=== PATIENT | female | born 1955 | race Caucasian/White ===

== ENCOUNTER → 2017-02-06 | Outpatient (CLI) | payer OTHER ==
[~2017-02-06] MED LIST: BISO1TAB6 PO; LORA10TA76 PO; LOSA100T28 PO; MINO100T10 PO; MONT10TA21 PO; TRAZ300T3 PO
--- NOTE | 2017-02-06 09:23 | Diagnostic Imaging Report ---
PROCEDURE: US abdomen complete. TECHNIQUE: Multiple real-time grayscale images were obtained over the abdomen in various projections. INDICATION: Right upper quadrant pain. FINDINGS: The pancreas is largely obscured by bowel gas. The liver demonstrates no focal mass. There is hepatopetal flow in the portal vein. The inferior aspect of the right hepatic lobe demonstrates a 1.3 cm simple appearing cyst. There is no gallstone or gallbladder wall thickening seen. The CBD is 3 mm in caliber. The spleen is 9.7 cm in length with no hydronephrosis or focal lesion. The right kidney is 9.3 and the left kidney is 9.4 cm in length. There is no hydronephrosis or focal lesion. No fluid collection is noted in the upper right abdomen. The abdominal aorta is patent and normal in caliber. The IVC is obscured by bowel gas. No ascites is seen. IMPRESSION: No significant abnormality. Dictated by: Dictated on workstation # [id number]
== END ==
LOC: RAD 07:38
PROVIDERS: ATTEND Family Medicine
DX: R10.11 Right upper quadrant pain (principal); R14.0 Abdominal distension (gaseous)
CPT/HCPCS: 76700

== ENCOUNTER → 2017-02-22 | Outpatient (CLI) | payer OTHER ==
--- NOTE | 2017-02-22 16:27 | Diagnostic Imaging Report ---
INDICATION: Generalized abdominal pain. FINDINGS: KUB shows normal stool gas pattern with no evidence of constipation. No distended small bowel loop. No organomegaly. No pathologic calcifications. No bony abnormalities. IMPRESSION: Normal KUB. Dictated by: Dictated on workstation # [id number]
== END ==
LOC: RAD 13:47
PROVIDERS: ATTEND Family Medicine
DX: R10.84 Generalized abdominal pain (principal)
CPT/HCPCS: 74000

== ENCOUNTER → 2017-11-07 | Outpatient (CLI) | payer OTHER ==
--- NOTE | 2017-11-07 14:17 | Diagnostic Imaging Report ---
INDICATION: Weakness and neck popping. TIME OF EXAM: 02:18 p.m. FINDINGS: There is slight reversal of the normal cervical lordotic curvature. There is multilevel degenerative disc disease with disc space narrowing and marginal spurring, particularly from the C3-C4 through the C6-C7 levels. The prevertebral tissues are normal. The odontoid is intact. No fractures are seen. IMPRESSION: Cervical spondylosis and reversal of normal curvature. No acute bony abnormality is detected. Dictated by: Dictated on workstation # [id number]
== END ==
LOC: RAD 13:47
PROVIDERS: ATTEND Family Medicine
DX: M47.812 Spondylosis without myelopathy or radiculopathy, cervical region (principal); M43.8X2 Other specified deforming dorsopathies, cervical region; R53.1 Weakness
CPT/HCPCS: 72040

== ENCOUNTER → 2018-03-25 | Outpatient (CLI) | payer OTHER ==
--- NOTE | 2018-03-25 16:21 | Diagnostic Imaging Report ---
INDICATION: Neck pain and left arm numbness and productive cough. PA and lateral chest obtained at 04:32 p.m. Heart and mediastinal silhouette are normal in appearance. The lungs are clear. There is no pneumothorax or pleural fluid. IMPRESSION: Negative chest. Dictated by: Dictated on workstation # [id number]
--- NOTE | 2018-03-25 16:28 | Diagnostic Imaging Report ---
INDICATION: Neck pain and left arm numbness. AP, odontoid, and lateral views of the cervical spine are obtained and compared with 11/07/17. FINDINGS: There is loss of lordosis which is unchanged compared to the prior study. The cervical vertebrae are normal in height. There is disc space narrowing at C3-C4, C4-C5 and C5-C6 and C6-C7. The facets appear in good alignment. IMPRESSION: Stable degenerative changes of the cervical spine which are unchanged from 11/07/17. Dictated by: Dictated on workstation # [id number]
== END ==
LOC: RAD 15:48
PROVIDERS: ATTEND Family Medicine
DX: M47.812 Spondylosis without myelopathy or radiculopathy, cervical region (principal); R05 Cough
CPT/HCPCS: 71046; 72040

== ENCOUNTER → 2018-04-07 | Outpatient (CLI) | payer OTHER ==
--- NOTE | 2018-04-07 16:01 | Diagnostic Imaging Report ---
INDICATION: History of smoking. COMPARISON: None. TECHNIQUE: Routine low-dose noncontrast CT of the chest was performed per departmental protocol for low dose CT screening of the chest. FINDINGS: Evaluation of the lung srivastava demonstrates mild air trapping consistent with background of COPD changes. There is a punctate subpleural micronodule within the lateral margins of the right upper lobe (image 51, series 5). No other suspicious pulmonary nodules or masses are identified. There is no focal consolidation, pleural effusion, nor pneumothorax. Cardiomediastinal structures are somewhat suboptimally evaluated given low-dose noncontrast nature of the exam, but heart size is within normal limits. There is small pericardial effusion. No pathologically enlarged or morphologically abnormal adenopathy is seen within the mediastinum, kaye, nor axilla. Note is made of mild calcified coronary atherosclerosis. Bony structures show age-related degenerative changes. Included portions of the upper abdomen are unremarkable. IMPRESSION: 1. Single punctate micronodule within the right upper lobe as described above. Continued followup with annual low dose CT chest is recommended. 2. Background of mild emphysematous disease. 3. Small pericardial effusion. LungRads Category: 2. Dictated by: Dictated on workstation # [id number]
== END ==
LOC: RAD 13:55
PROVIDERS: ATTEND Family Medicine
DX: Z12.2 Encounter for screening for malignant neoplasm of respiratory organs (principal); J43.9 Emphysema, unspecified; R91.8 Other nonspecific abnormal finding of lung field; I31.3 Pericardial effusion (noninflammatory)

== ENCOUNTER → 2018-04-29 | Outpatient (CLI) | payer OTHER | LOC: CARD 12:44 | PROVIDERS: ATTEND Family Medicine | DX: I31.3 Pericardial effusion (noninflammatory) (principal) | CPT/HCPCS: 93306 ==

== ENCOUNTER → 2018-06-04 | Outpatient (CLI) | payer OTHER ==
[~2018-06-04] VITALS: Ht 165.1 cm; Wt 57.6 kg
[~2018-06-04] MED LIST changes: +CATHETER FLUSH 10 ML SYR IV PRN
[2018-06-04 13:12] LABS: ALANINE AMINOTRANSFERASE 14 U/L (0-55); ALBUMIN 4.3 GM/DL (3.2-4.5); ALKALINE PHOSPHATASE 62 U/L (40-136); BILIRUBIN,TOTAL 0.6 MG/DL (0.1-1.0); BUN/CREATININE RATIO 13; CALCIUM 9.6 MG/DL (8.5-10.1); CARBON DIOXIDE 25 MMOL/L (21-32); CHLORIDE 106 MMOL/L (98-107); CHOLESTEROL 217 MG/DL (< 200); GFR ESTIMATED > 60; GLUCOSE 103 MG/DL (70-105); HDL CHOLESTEROL 45 MG/DL (40-60); POTASSIUM 4.2 MMOL/L (3.6-5.0); SODIUM 140 MMOL/L (135-145); TOTAL PROTEIN 6.6 GM/DL (6.4-8.2); TRIGLYCERIDES 115 MG/DL (<150); VLDL CHOLESTEROL 23 MG/DL (5-40)
[2018-06-04 13:35] VITALS: BP 192/90
--- NOTE | 2018-06-05 11:25 | STRESS TEST ---
DATE OF SERVICE: 06/04/2018 EXERCISE MYOVIEW STRESS TEST REPORT REFERRING PHYSICIAN: Brunilda May DO Baseline heart rate is 49, baseline blood pressure 171/94. Baseline EKG is sinus rhythm with no ischemic changes. In summary, the patient was injected with 10.80 mCi of technetium-99 Myoview and the resting images were obtained. Then, the patient started exercising on standard Feliz protocol. She was able to exercise for a total of 8 minutes and 45 seconds on standard Feliz protocol, has significant artifact during exercise on EKG. No ischemic changes. She achieved 85% of maximum expected heart rate. With peak exercise level, blood pressure was 226/102. During recovery, heart rate and blood pressure returned to baseline. EKG returned to baseline. The resting and stress images were reviewed and compared in the short axis, horizontal long axis, and vertical long axis views. Review of the images showed good radiotracer uptake with no significant ischemia or infarction. SSS is 1, SDS 1, TID value 0.93. On the gated images, the left ventricle appeared to be in normal size with normal contractility. Calculated ejection fraction 65%. CONCLUSION: 1. Good exercise tolerance, a total of 8 minutes 45 seconds on standard Feliz protocol, achieving 85% of maximum expected heart rate. 2. Hypertensive response to exercise, returned to baseline during recovery. 3. No ischemia or infarction on SPECT images. 4. Normal left ventricular size with normal contractility. Calculated ejection fraction 65%. Job ID: [id number] DocumentID: [id number] Dictated Date: 06/05/2018 07:42:10 Advanced Practice Rn Date: 06/05/2018 08:17:05 Dictated By: CATALINO PRASAD MD
== END ==
LOC: CARD 11:39
PROVIDERS: ATTEND Internal Medicine Cardiovascular Disease
DX: I08.3 Combined rheumatic disorders of mitral, aortic and tricuspid valves (principal); R06.09 Other forms of dyspnea; I10 Essential (primary) hypertension
CPT/HCPCS: 36415; 78452; 80053; 80061; 84443; 93017

== ENCOUNTER → 2019-06-18 | Outpatient (CLI) | payer OTHER ==
[~2019-06-18] MED LIST changes: -CATHETER FLUSH 10 ML SYR IV PRN; -LOSA100T28 PO; +LOSA100T57 PO
--- NOTE | 2019-06-18 13:29 | Diagnostic Imaging Report ---
EXAMINATION: CT CHEST SCREENING WO INDICATION: Lung screening. Current smoker with [id number] history of smoking. TECHNIQUE: Low-dose helical CT of the chest without IV contrast (Adult Lung Cancer Screening) protocol was performed. Coronal and sagittal reformats were obtained. All CT scans use one or more of the following dose optimizing techniques: automated exposure control, MA and/or KvP adjustment based on a patient size and exam type, or iterative reconstruction. COMPARISON: Baseline lung screening performed on 04/07/2018. FINDINGS: LUNG NODULES: The previously demonstrated right upper lobe lung nodule is not definitely seen today. No new nodules are appreciated in either lung. OTHER FINDINGS: Low-dose technique and absence of intravenous contrast decreases sensitivity for detection of lymphadenopathy and vascular pathology. TRACHEA AND MAIN BRONCHI: Patent without evidence of tracheal or endobronchial lesion. LUNGS AND PLEURA: Mild emphysematous changes again demonstrated. No consolidation or pulmonary mass. No pleural effusion or pneumothorax. MEDIASTINUM AND JOSE: Visualized thyroid gland is normal. No mediastinal or hilar lymphadenopathy, within limits of noncontrast technique. Esophagus is nondistended. HEART AND VESSELS: Heart is normal in size. Unchanged trace pericardial fluid without micky effusion. Atherosclerotic calcification involves the aorta and its branches, including the coronary arteries. Thoracic aorta is nonaneurysmal. DIAPHRAGM AND UPPER ABDOMEN: Unremarkable. CHEST WALL: Unremarkable. BONES: No acute abnormality. IMPRESSION: Previously demonstrated right upper lobe lung nodule is not definitely appreciated on today's exam. No new nodule or pulmonary mass is appreciated. Additional incidental findings including emphysematous changes in the lungs and trace pericardial fluid, unchanged from prior exam. Lung-RADS Category: 1, Negative. No nodules. Modifier: None. Recommendations: Continued annual screening with low-dose CT in 12 months. Dictated by: Dictated on workstation # [id number]
== END ==
LOC: RAD 11:27
PROVIDERS: ATTEND Nurse Practitioner Family
DX: Z12.2 Encounter for screening for malignant neoplasm of respiratory organs (principal); J43.9 Emphysema, unspecified; Z87.891 Personal history of nicotine dependence

== ENCOUNTER 2019-07-22 15:50 | Outpatient (CLI) | payer OTHER ==
[~2019-07-22] VITALS: Ht 165.1 cm; Wt 57.7 kg
[~2019-07-22 15:50] MED LIST changes: +AMLO5TAB9 PO; +PANT40TA3 PO; +TELM80TA8 PO
[2019-07-28] MEDS ORDERED: SUCR1TAB36 PO (10:19)
== END 2019-07-22 15:52 | disposition home or self-care (01) ==
LOC: PREOP 15:50
PROVIDERS: ATTEND Surgery
DX: Z01.818 Encounter for other preprocedural examination (principal)

== ENCOUNTER 2019-07-28 09:13 | Day surgery (SDC) | payer OTHER ==
[2019-07-28] MEDS ORDERED: LACTATED RINGERS 1,000 ML IV STA (09:21)
[2019-07-28] MEDS ORDERED: LACTATED RINGERS 1,000 ML IV ONE (09:24)
[2019-07-28] MEDS ORDERED: HURRICAINE EXT TUBE (BENZOCAINE) XX PRN (09:30)
[2019-07-28] MEDS ORDERED: HURRICAINE EXT TUBE (BENZOCAINE) ONE (09:35)
[2019-07-28] MEDS ORDERED: proPOfol 200 MG/20 ML (DIPRIVAN) VIAL IV ONE (09:37)
[2019-07-28] MEDS ORDERED: MIDAZOLAM 2 MG/2 ML (VERSED) VIAL ONE (09:37)
--- NOTE | 2019-07-28 09:37 | Progress Note-Pre Operative ---
Pre-Operative Progress Note H&P Reviewed The H&P was reviewed, patient examined and no changes noted. Date Seen by Provider: Jul 28, 2019 Time Seen by Provider: 09:36 Date H&P Reviewed: Jul 28, 2019 Time H&P Reviewed: 09:36 Pre-Operative Diagnosis: epigastric abd pain, gerd LESTER GIRALDO DO Jul 28, 2019 09:37
[2019-07-28 09:40] VITALS: BP 134/78
[2019-07-28] MEDS ORDERED: PROPOFOL INJECTION 0 ML IV ONE (09:46)
[2019-07-28 10:05] VITALS: BP 142/69
[2019-07-28 10:10] VITALS: BP 139/67
[2019-07-28 10:15] VITALS: BP 135/73
--- NOTE | 2019-07-28 10:16 | Progress Note-Post Operative ---
Post-Operative Progess Note Surgeon (s)/[employer] Manager (s) Surgeon LESTER GIRALDO DO [employer] Manager: na Pre-Operative Diagnosis epigastric abd pain, gerd Post-Operative Diagnosis gastritis Procedure & Operative Findings Date of Procedure 07/28/19 Procedure Performed/Findings egd c biopsies Anesthesia Type per excavation laborer Estimated Blood Loss Estimated blood loss (mL): na Specimens/Packing Specimens Removed antrum, body, ge LESTER GIRALDO DO Jul 28, 2019 10:16
--- NOTE | 2019-07-28 10:18 | Discharge Inst-Simple/Standard ---
Discharge Inst-Standard Discharge Medications New, Converted or Re-Newed RX: Transmitted to Pharmacy Patient Instructions/Follow Up Plan of Care/Instructions/FU: 2 bronwyn Bustlilos Activity as Tolerated: Yes Discharge Diet: Regular Diet LESTER BUSTILLOS DO Jul 28, 2019 10:18
[2019-07-28] MEDS ORDERED: SUCR1TAB36 PO (10:19)
[2019-07-28 10:45] VITALS: BP 134/80
[2019-07-28 10:50] VITALS: BP 134/80
--- NOTE | 2019-07-28 13:34 | Anesthesia-General Post-Op ---
MAC Patient Condition Mental Status/LOC: Same as Preop Cardiovascular: Satisfactory Nausea/Vomiting: Absent Respiratory: Satisfactory Pain: Controlled Complications: Absent Post Op Complications Complications None Follow Up Care/Instructions Patient Instructions None needed. Anesthesiology Discharge Order Discharge Order Patient is doing well, no complaints, stable vital signs, no apparent adverse anesthesia problems. No complications reported per nursing. MARYJANE LLANES CRNA Jul 28, 2019 13:34
--- NOTE | 2019-07-28 15:40 | OPERATIVE REPORT ---
DATE OF SERVICE: 07/28/2019 PREOPERATIVE DIAGNOSES: Epigastric abdominal pain, gastroesophageal reflux disease. POSTOPERATIVE DIAGNOSIS: Gastritis. PROCEDURE: EGD with biopsies. SURGEON: Lester Bustillos DO ANESTHESIA: Per NUCLEAR PHYSICIST. ESTIMATED BLOOD LOSS: None. COMPLICATIONS: None. SPECIMENS: Antrum, body and GE junction. INDICATIONS: The patient is a 64-year-old female with epigastric abdominal pain and reflux. She understands risks and benefits of procedure and wished to proceed with procedure. Consent was signed in the chart. DESCRIPTION OF PROCEDURE: The patient was taken to the endoscopy suite, placed in left lateral recumbent position. Timeout was performed. Scope was inserted in mouth, down the esophagus, stomach and into the duodenum without difficulty. There were no polyps, masses or ulcerations within the duodenum. Scope was slowly retracted back into the stomach where it was further insufflated. Erythematous changes present throughout the stomach. Biopsy of the antrum and body were obtained. No polyps, masses or ulcerations. Scope was retroflexed noting no other pathology. Scope was returned to its normal position, slowly withdrawn to the distal esophagus. Biopsy of the GE junction was obtained. Scope was then slowly retracted back until completely removed. The patient tolerated procedure well without any complications. She was taken to recovery room in stable condition. RECOMMENDATIONS: The patient to continue on current medications. We will add Carafate 1 gram four times a day to see if any improvement. The patient will follow up in the office in two to three weeks to see how she is doing at that time. Job ID: [id number] DocumentID: [id number] Dictated Date: 07/28/2019 10:23:43 Senior Safety Management Consultant Date: 07/28/2019 15:38:39 Dictated By: LESTER BUSTILLOS DO
== END 2019-07-28 10:50 | disposition home or self-care (01) ==
LOC: ENDO 09:13
PROVIDERS: ATTEND Surgery
DX: K29.50 Unspecified chronic gastritis without bleeding (principal); K21.0 Gastro-esophageal reflux disease with esophagitis; K31.89 Other diseases of stomach and duodenum; I10 Essential (primary) hypertension; I08.3 Combined rheumatic disorders of mitral, aortic and tricuspid valves; J44.9 Chronic obstructive pulmonary disease, unspecified; F17.210 Nicotine dependence, cigarettes, uncomplicated; Z90.710 Acquired absence of both cervix and uterus; Z79.899 Other long term (current) drug therapy; Z80.9 Family history of malignant neoplasm, unspecified

== ENCOUNTER → 2020-09-28 | Outpatient (CLI) | payer BC ==
[~2020-09-28] MED LIST changes: +AMLO-250 PO; -AMLO5TAB9 PO; +BISO-3 PO; -BISO1TAB6 PO; -PANT40TA3 PO; +PANT40TA52 PO; +SUCR1TAB36 PO
--- NOTE | 2020-09-28 13:38 | Diagnostic Imaging Report ---
EXAMINATION: CT Chest without contrast (lung screening). TECHNIQUE: Multiple contiguous axial images were obtained through the chest without the use of intravenous contrast according to lung cancer screening protocol. All CT scans use one or more of the following dose optimizing techniques: automated exposure control, MA and/or KvP adjustment based on a patient size and exam type, or iterative reconstruction. HISTORY: 47 pack year history of smoking. COMPARISON: CT chest screening 06/18/2019. FINDINGS: Thyroid: The thyroid is normal. Mediastinum: Heart size is normal with small anterior pericardial effusion. Calcifications of the aorta and coronary vessels. Thoracic aorta is normal in caliber. No suspicious lymphadenopathy. Lungs and airways: Mild emphysematous changes of the lungs without consolidation, pleural effusion, or pneumothorax. There is a new 0.4 cm x 0.2 right upper lobe pulmonary nodule (series 2 image 66). The airways are normal. Upper abdomen: The subphrenic structures are normal. Musculoskeletal: No suspicious osseous lesion or compression fracture. IMPRESSION: 1. A new 0.3 cm right upper lobe pulmonary nodule. Recommend continued low-dose annual CT screening. LUNG-RADS CATEGORY: 2: Benign appearance or behavior. MODIFIER: None. Dictated by: Dictated on workstation # [id number]
== END ==
LOC: RAD 12:45
PROVIDERS: ATTEND Family Medicine
DX: R91.1 Solitary pulmonary nodule (principal); Z87.891 Personal history of nicotine dependence

== ENCOUNTER → 2021-09-29 | Outpatient (CLI) | payer BC ==
--- NOTE | 2021-09-29 16:10 | Diagnostic Imaging Report ---
CT CHEST SCREENING WO TECHNIQUE: Low-dose unenhanced CT of the chest was performed according to the screening protocol. Coronal MIP and sagittal MPR reformats are created. Automatic exposure controls were utilized to keep dose as low as reasonably achievable. INDICATION: 46 pack year history of smoking. COMPARISON: 09/28/2020 FINDINGS: Pulmonary findings: No endoluminal nodule within the trachea. No pneumonia or edema. No suspicious pulmonary nodules have developed. The previously noted 3 mm pulmonary nodule in the right upper lobe is no longer present. Extrapulmonary findings: No axillary or mediastinal lymphadenopathy. Normal heart size without pericardial effusion. No pleural effusion or aortic aneurysm. No concerning focal osseous lesion has developed. IMPRESSION: No change to indicate clinically active lung cancer. Lung-RADS category: 1 - Negative Recommendations: Continued annual screening with low-dose CT in 12 months. Dictated by: Dictated on workstation # [id number]
== END ==
LOC: RAD 11:45
PROVIDERS: ATTEND Family Medicine
DX: Z12.2 Encounter for screening for malignant neoplasm of respiratory organs (principal); F17.210 Nicotine dependence, cigarettes, uncomplicated
CPT/HCPCS: 71271

== ENCOUNTER → 2022-04-20 | Outpatient (CLI) | payer BC, MEDICARE ==
--- NOTE | 2022-04-20 13:10 | Diagnostic Imaging Report ---
Indication: Routine screening. Comparison is made with prior mammogram from 08/03/2015. 2-D and 3-D bilateral screening mammography was performed with CAD. Scattered fibroglandular densities are identified bilaterally. No mass or malignant-appearing microcalcifications are seen. Axillae are unremarkable. IMPRESSION: BI-RADS Category 1 No mammographic features suspicious for malignancy are identified. ACR BI-RADS Category 1: Negative. Result letter will be mailed to the patient. Note: At least 10% of breast cancer is not imaged by mammography. Dictated by: Dictated on workstation # [id number]
== END ==
LOC: RAD 11:30
PROVIDERS: ATTEND Family Medicine
DX: Z12.31 Encounter for screening mammogram for malignant neoplasm of breast (principal)
CPT/HCPCS: 77063; 77067

== ENCOUNTER → 2022-06-27 | Outpatient (CLI) | payer BC ==
[~2022-06-27] VITALS: Ht 162.6 cm; Wt 56.7 kg
[~2022-06-27] MED LIST changes: +AMLO-251 PO; +BUDE10.2 IH; +FLUT16SP22 NS
== END | disposition home or self-care (01) ==
LOC: PREOP 05:39
PROVIDERS: ATTEND Surgery
DX: Z01.818 Encounter for other preprocedural examination (principal)

== ENCOUNTER 2022-07-05 06:56 | Day surgery (SDC) | payer BC, MEDICARE ==
[~2022-07-05] VITALS: Ht 163 cm; Wt 56.7 kg
[2022-07-05] MEDS ORDERED: LACTATED RINGERS 1,000 ML IV STA (07:22)
[2022-07-05] MEDS ORDERED: HURRICAINE EXT TUBE (BENZOCAINE) XX PRN (07:30)
[2022-07-05 07:39] VITALS: BP 112/72
[2022-07-05] MEDS ORDERED: MIDAZOLAM 2 MG/2 ML (VERSED) VIAL ONE (08:45)
[2022-07-05] MEDS ORDERED: PROPOFOL INJECTION 50 ML IV ONE (08:45)
--- NOTE | 2022-07-05 08:51 | Progress Note-Pre Operative ---
Pre-Operative Progress Note Date of Available H&P: Jun 05, 2022 Date H&P Reviewed: Jul 05, 2022 Time H&P Reviewed: 08:41 History & Physical: H&P Reviewed, Patient Examed, No changes noted Pre-Operative Diagnosis: GERD, Nausea, screening colonoscopy CLAYTON SIMON DO Jul 05, 2022 08:51
[2022-07-05 09:38] VITALS: BP 134/90
--- NOTE | 2022-07-05 09:43 | Progress Note-Post Operative ---
Post-Operative Progess Note Surgeon (s)/Airbrush Artist Photography (s) Surgeon CLAYTON SIMON DO Airbrush Artist Photography: Celso Felix, MSIII Pre-Operative Diagnosis GERD, Nausea, screening colonoscopy Post-Operative Diagnosis Gastritis with bleeding mild pyloric stricture Hiatal hernia polyps int hemorrhoids Procedure & Operative Findings Date of Procedure 07/05/22 Procedure Performed/Findings EGD with bx Colonoscopy with snare polypectomy Colonoscopy with hot bx PROCEDURE NOTE: After informed consent was obtained, the patient was brought to the endoscopy suite, placed in bed in left lateral decubitus position. She was administered IV sedation by the MOVIE EDITOR who then monitored vitals the entire time, heart rate, blood pressure and pulse ox and the scope was inserted down the mouth through the esophagus into the stomach. On the way down, noted some mild esophagitis, took a picture, pushed into the stomach and noted some spots of blood - looked like gastritis with bleeding. Pushed past the antrum into the duodenum; the pylorus was tight and hard to get scope into. Duodenum looked good. When I pulled back into the antrum there was some bleeding from pylorus. I did a biopsy of the antrum, then retroflexed the scope and saw a 1-2 cm hiatal hernia, took a picture of this and then did a biopsy of the body of stomach. Next, pulled the scope into the GE junction, took another picture of the hiatal hernia and then did a biopsy of the GE junction. Pushed the scope back into the stomach, suctioned all the air out of the stomach. At this point pulled the scope up the esophagus and out the mouth. Switched camera, switched gloves, went down below and started the colon- oscopy. Pushed all the way into about 110 cm to get all the way to cecum; but backed out to 80 and was still in the cecum. On the way had found some polyps in the sigmoid colon and removed them with a snare. In the cecum I took a picture of the appendiceal orifice, noted the ileocecal valve and found another polyp that I also removed with the snare. Then slowly withdrew the scope, insufflating to look circumferentially at the castillo starting in the cecum and up the ascending colon. In the ascending colon I found a flat polyp and elected to remove it with hot biopsy. Up to the hepatic flexure, then down the transverse colon, to the splenic flexure and into the descending colon; where I found a large polyp which I removed with the snare. Then down into the sigmoid and finally into the rectum. There were multiple polyps throughout here and I took 5 with hot biopsy; plus found another large one in the rectum that I removed completely with the snare. Finally, retroflexed in the rectal vault, saw some minimal internal hemorrhoids and took a picture of this. The patient tolerated the procedure and she recovered in the endoscopy suite. Recommended for repeat colonoscopy in 1 year Anesthesia Type IV sedation by MOVIE EDITOR Estimated Blood Loss Estimated blood loss (mL): scant Specimens/Packing Specimens Removed antral bx body of stomach bx GE jxn bx sigmoid polyps cecal polyp asc colon polyp desc colon polyp rectal polyp CLAYTON SIMON DO Jul 05, 2022 09:43
[2022-07-05 09:45] VITALS: BP 131/75
[2022-07-05] MEDS ORDERED: PANT40TA2 PO (09:45)
--- NOTE | 2022-07-05 09:45 | Endoscopy Discharge Instruct ---
Endo Procedure/Findings Findings 1.: Gastritis 2.: Hiatal Hernia 3.: Polyp 4.: Internal Hemorrhoids Discharge Instructions - Activity: You might feel a little sleepy until tomorrow. This is due to the medicine you received to relax you. Until tomorrow, you should: NOT drive a car, operate machinery or power tools. NOT drink any alcoholic beverages. NOT make any important decisions or sign importortant papers. Do not return to work until tomorrow, unless otherwise instructed. Resume previous activities tomorrow. Diet: Start by taking liquids. If you tolerate liquids, advance to solid food. 1.: EGD in 1 year 2.: Colonoscopy in 1 year Notify Physician - If you experience excessive bleeding, unusual abdominal pain, fever, or chest pain, contact your doctor immediately. CLAYTON SIMON DO Jul 05, 2022 09:45
[2022-07-05 10:30] VITALS: BP 112/72
--- NOTE | 2022-07-05 11:50 | Anesthesia-General Post-Op ---
MAC Patient Condition Mental Status/LOC: Same as Preop Cardiovascular: Satisfactory Nausea/Vomiting: Absent Respiratory: Satisfactory Pain: Controlled Complications: Absent Post Op Complications Complications None Follow Up Care/Instructions Patient Instructions None needed. Anesthesiology Discharge Order Discharge Order Patient is doing well, no complaints, stable vital signs, no apparent adverse anesthesia problems. No complications reported per nursing. MARYJANE LLANES CRNA Jul 05, 2022 11:50
== END 2022-07-05 10:36 | disposition home or self-care (01) ==
LOC: ENDO 06:56
PROVIDERS: ATTEND Surgery
DX: Z12.11 Encounter for screening for malignant neoplasm of colon (principal); K21.00 Gastro-esophageal reflux disease with esophagitis, without bleeding; K63.5 Polyp of colon; D12.8 Benign neoplasm of rectum; D12.2 Benign neoplasm of ascending colon; D12.4 Benign neoplasm of descending colon; D12.0 Benign neoplasm of cecum; K29.60 Other gastritis without bleeding; K44.9 Diaphragmatic hernia without obstruction or gangrene; K31.1 Adult hypertrophic pyloric stenosis; K64.8 Other hemorrhoids
CPT/HCPCS: 88305

== ENCOUNTER 2023-08-07 05:54 | Outpatient (CLI) | payer BC, MEDICARE ==
[~2023-08-07] VITALS: Ht 162.6 cm; Wt 59.0 kg
[~2023-08-07 05:54] MED LIST changes: -LOSA100T57 PO; +LOSA100T58 PO; +MONT-47 PO; -MONT10TA21 PO; +PANT40TA2 PO
[2023-08-07] MEDS ORDERED: TELM80TA8 PO (09:42)
[2023-08-07] MEDS ORDERED: FAMO20TA5 PO (09:42)
[2023-08-07] MEDS ORDERED: ROSU5TAB13 PO (09:42)
[2023-08-07] MEDS ORDERED: GABA-491 PO (09:42)
== END 2023-08-07 09:45 | disposition home or self-care (01) ==
LOC: PREOP 05:54
PROVIDERS: ATTEND Surgery
DX: Z01.818 Encounter for other preprocedural examination (principal)

== ENCOUNTER 2023-08-12 08:40 | Day surgery (SDC) | payer BC, MEDICARE ==
[~2023-08-12] VITALS: Ht 162.6 cm; Wt 59.0 kg
[~2023-08-12 08:40] MED LIST changes: +FAMO20TA5 PO; +GABA-491 PO; +ROSU5TAB13 PO
[2023-08-12] MEDS ORDERED: LACTATED RINGERS 1,000 ML 1,000 ML IV STA (08:51)
--- NOTE | 2023-08-12 08:59 | Progress Note-Pre Operative ---
Pre-Operative Progress Note Date of Available H&P: Jul 30, 2023 Date H&P Reviewed: Aug 12, 2023 Time H&P Reviewed: 08:57 History & Physical: H&P Reviewed, Patient Examed, No changes noted Pre-Operative Diagnosis: GERD, Hx of polyps CLAYTON SIMON DO Aug 12, 2023 08:59
[2023-08-12] MEDS ORDERED: HURRICAINE EXT TUBE (BENZOCAINE) XX PRN (09:00)
[2023-08-12 09:15] VITALS: BP 127/60
[2023-08-12] MEDS ORDERED: MIDAZOLAM INJ 2 MG/2 ML VIAL ONE (10:36)
[2023-08-12 11:05] VITALS: BP 110/67
--- NOTE | 2023-08-12 11:08 | Progress Note-Post Operative ---
Post-Operative Progess Note Surgeon (s)/[place] Guide (s) Surgeon CLAYTON SIMON DO [place] Guide: none Pre-Operative Diagnosis GERD, Hx of polyps Post-Operative Diagnosis Gastritis with bleed Hiatal Hernia Colon polyps diverticula int hemorrhoids Procedure & Operative Findings Date of Procedure 08/12/23 Procedure Performed/Findings EGD with biopsy Colonoscopy with hot biopsy PROCEDURE NOTE: After informed consent was obtained, the patient was brought to the endoscopy suite, placed in bed in left lateral decubitus position. She was administered IV sedation by the CAR HOP who then monitored vitals the entire time, heart rate, blood pressure and pulse ox and the scope was inserted down the mouth through the esophagus into the stomach. On the way down, noted some mild esophagitis, took a picture, pushed into the stomach, noted blood flecks and pushed past the antrum into the duodenum. Duodenum looked good. Pulled back and did a biopsy of the antrum, then retroflexed the scope and did a biopsy of the body of the stomach. I also saw a 2cm Grade III AFS hiatal hernia, took a picture of this and then pulled the scope into the GE junction. I took another picture of the hiatal hernia and then did a biopsy of the GE junction. Pushed the scope back into the stomach, suctioned all the air out of the stomach. At this point pulled the scope up the esophagus and out the mouth. Switched camera, switched gloves, went down below and started the colonoscopy. Pushed all the way to about [address] in noted some Diverticula; took a picture. I then pushed to the cecum, took a picture of appendiceal orifice and noted the ileocecal valve. Then slowly withdrew the scope insufflating to look circumferentially at the castillo starting in the cecum and up the ascending colon. I found two flat polyps here and removed them with hot biopsy. Continued up to the hepatic flexure, then down the transverse colon to the splenic flexure and into the descending colon. Down into the sigmoid where I found another polyp and removed it with hot biopsy. Finally, into the rectal vault and retroflexed the scope. I found a rectral polyp as well and removed it with hot biopsy. Took a picture of the internal hemorrhoids. The patient tolerated the procedure and she recovered in the endoscopy suite. Recommended for repeat colonoscopy in 5 years Anesthesia Type IV sedation by CAR HOP Estimated Blood Loss Estimated blood loss (mL): scant Specimens/Packing Specimens Removed antral bx body of stomach bx GE jxn bx Asc colon polyp x 2 sigmoid polyp rectal polyp CLAYTON SIMON DO Aug 12, 2023 11:08
[2023-08-12 11:10] VITALS: BP 99/49
--- NOTE | 2023-08-12 11:10 | Endoscopy Discharge Instruct ---
Endo Procedure/Findings Findings 1.: Hiatal Hernia, Gastritis 2.: Polyp 3.: Diverticulosis 4.: Internal Hemorrhoids Discharge Instructions - Activity: You might feel a little sleepy until tomorrow. This is due to the medicine you received to relax you. Until tomorrow, you should: NOT drive a car, operate machinery or power tools. NOT drink any alcoholic beverages. NOT make any important decisions or sign importortant papers. Do not return to work until tomorrow, unless otherwise instructed. Resume previous activities tomorrow. Diet: Start by taking liquids. If you tolerate liquids, advance to solid food. 1.: EGD in 3 years 2.: Colonscopy in 5 years Notify Physician - If you experience excessive bleeding, unusual abdominal pain, fever, or chest pain, contact your doctor immediately. Follow-Up: Other Follow up in my office in one week CLAYTON SIMON DO Aug 12, 2023 11:10
[2023-08-12 11:15] VITALS: BP 99/49
[2023-08-12 11:40] VITALS: BP 109/54
[2023-08-12 11:58] VITALS: BP 109/54
--- NOTE | 2023-08-12 13:31 | Anesthesia-General Post-Op ---
MAC Patient Condition Mental Status/LOC: Same as Preop Cardiovascular: Satisfactory Nausea/Vomiting: Absent Respiratory: Satisfactory Pain: Controlled Complications: Absent Post Op Complications Complications None Follow Up Care/Instructions Patient Instructions None needed. Anesthesiology Discharge Order Discharge Order Patient is doing well, no complaints, stable vital signs, no apparent adverse anesthesia problems. No complications reported per nursing. BRODY WRIGHT CRNA Aug 12, 2023 13:31
== END 2023-08-12 11:58 | disposition home or self-care (01) ==
LOC: ENDO 08:40
PROVIDERS: ATTEND Surgery
DX: Z12.11 Encounter for screening for malignant neoplasm of colon (principal); D12.2 Benign neoplasm of ascending colon; K63.5 Polyp of colon; K62.1 Rectal polyp; K29.71 Gastritis, unspecified, with bleeding; K21.00 Gastro-esophageal reflux disease with esophagitis, without bleeding; K22.70 Barrett's esophagus without dysplasia; K44.9 Diaphragmatic hernia without obstruction or gangrene; K57.30 Diverticulosis of large intestine without perforation or abscess without bleeding; K64.8 Other hemorrhoids; Z79.899 Other long term (current) drug therapy
CPT/HCPCS: 88305